=== PATIENT | male | born 1960 | race Caucasian/White ===

== ENCOUNTER 2017-06-21 15:00 | Emergency (ER) | payer BC ==
--- NOTE | 2017-06-21 15:38 | Emergency Department Record ---
History of Present Illness - General Chief Complaint: Laceration(s) Stated Complaint: THUMB INJURY Time Seen by Provider: 06/21/17 15:25 Source: Patient, Family Mode of Arrival: Ambulatory Limitations: No limitations - History of Present Illness Initial Commments: 56 yo male presents with a left thumb injury. He was cutting wood with a chop saw and injured his thumb. 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 Onset/Timin -: Minutes(s) Extremity Location: Left: Hand Place: Home Context: Accidental, Power tool use Associated Symptoms: None Treatments Prior to Arrival: Bandage - Antoinette Coma Scale Eye Response: (4) Open spontaneously Motor Response: (6) Obeys commands Verbal Response: (5) Oriented Antoinette Total: 15 - Related Data Hx Tetanus Toxoid Vaccination: Yes Year of Tetanus Vaccination: 2014 Patient Tetanus UTD (within 5 yrs): Yes (2014) Previous Rx's Medication Instructions Recorded Cephalexin [Keflex] 500 mg PO TID #21 cap 06/21/17 Hydrocodone/Acetaminophen [[place] 1 tab PO Q6H PRN #20 tab 06/21/17 7.5mg/325mg] Allergies Allergy/AdvReac Type Severity Reaction Status Date / Time No Known Drug Allergies Allergy Verified 10/18/16 13:41 Travel Screening - Travel/Exposure Within Last 30 Days Have you traveled within the last 30 days?: No Review of Systems Constitutional: Denies: Chills, Fever, Malaise, Weakness Eyes: Denies: Eye discharge ENT: Denies: Congestion Respiratory: Denies: Cough, Dyspnea Cardiovascular: Denies: Chest pain, Syncope Endocrine: Denies: Fatigue Gastrointestinal: Denies: Abdominal pain, Diarrhea, Nausea, Vomiting Genitourinary: Denies: Dysuria Musculoskeletal: Reports: As per HPI, Arthralgia Skin: Denies: Bruising, Change in color, Rash Neurological: Denies: Confusion, Headache Psychiatric: Denies: Anxiety Hematological/Lymphatic: Denies: Blood Clots, Easy bleeding, Easy bruising, Swollen glands Past Medical History - SOCIAL HISTORY Smoking Status: Current every day smoker Alcohol Use: None Drug Use: None - RESPIRATORY Hx Respiratory Disorders: No - CARDIOVASCULAR Hx Cardio Disorders: No - NEURO Hx Neuro Disorders: No - GI Hx GI Disorders: No - Hx Genitourinary Disorders: No - ENDOCRINE Hx Endocrine Disorders: No - MUSCULOSKELETAL Hx Musculoskeletal Disorders: No - PSYCH Hx Psych Problems: No - HEMATOLOGY/ONCOLOGY Hx Hematology/Oncology Disorders: No Family Medical History Any Significant Family History?: No Physical Exam - General General Appearance: Alert, Oriented x3, Cooperative, No acute distress Limitations: No limitations - Head Head exam: Atraumatic, Normal inspection - Eye Eye exam: Normal appearance - ENT ENT exam: Normal exam Ear exam: Normal external inspection Nasal Exam: Normal inspection Mouth exam: Normal external inspection - Neck Neck exam: Normal inspection - Respiratory Respiratory exam: negative: Accessory muscle use - Cardiovascular Cardiovascular Exam: Regular rate, Normal rhythm, Normal heart sounds Peripheral Pulses: 2+: Dorsalis Pedis (L) - Rectal Rectal exam: Deferred - exam: Deferred - Extremities Extremities exam: negative: Normal inspection Image of Finger Tip: 1 - laceration with visible bone, mobile distal tip of the thumb - Neurological Neurological exam: Alert, Normal gait, Oriented X3, Reflexes normal - Psychiatric Psychiatric exam: Normal affect, Normal mood - Skin Skin exam: Other (thumb laceration). negative: Cyanosis, Diaphoretic Course Vital Signs 06/21/17 15:16 Temperature 98.8 F Pulse Rate 90 Respiratory 20 Rate Blood Pressure 148/89 Pulse Ox 95 - Reevaluation(s) Reevaluation #1: Betadine Prep Sensorcaine 4ml digital block. 06/21/17 15:37 1 liter of pressure irrigation was used to thoroughly clean the wound Bone was visible No FB visible Non adherent bandage with antibiotic ointment dress placed The XR demonstrated a distal comminuted fracture of the bone I discussed the extensive wound likely will require a hand surgery followup/ consult with possible altered function and anatomy as a result of the injury. Reevaluation #2: I SW Dr Deal He will see the patient tomorrow in the office He requested 2 sutures to stabilize the injury and bulky dressing The patient was given IV antibiotics and supplied with antibiotics for home and pain medication 06/21/17 16:46 Disposition Disposition: Discharge Clinical Impression: Thumb laceration Qualifiers: Encounter type: initial encounter Damage to nail status: unspecified Foreign body presence: unspecified Laterality: unspecified laterality Qualified Code(s) : S61.019A - Laceration without foreign body of unspecified thumb without damage to nail, initial encounter Disposition: Home, Self-Care Condition: (1) Good Instructions: Laceration (ED) Additional Instructions: Call Dr Deal in the morning at 8am to be seen tomorrow Take a Keflex at bedtime and in the morning Prescriptions: Cephalexin [Keflex] 500 mg PO TID #21 cap Hydrocodone/Acetaminophen [[place] 7.5mg/325mg] 1 tab PO Q6H PRN #20 tab PRN Reason: Pain - General Referrals: ARDEN DEAL [MEDICAL DOCTOR] - Forms: Patient Portal Access Time of Disposition: 17:02 Quality - Quality Measures Quality Measures: N/A - Blood Pressure Screening View Details: Yes Blood Pressure Classification: Pre-Hypertensive BP Reading Systolic Measurement: 115 Diastolic Measurement: 81 Screening for High Blood Pressure: < Normal BP, F/U Not Required > [G8783] Normal BP Follow-up Interventions: No follow-up required
[2017-06-21] MEDS: CEFAZOLIN 2 Gram 2 GM/50 ML BAG IVPB ONE (16:00)
[2017-06-21] MEDS: CEPHALEXIN 500 MG CAPSULE PO STA ×2 (17:33→17:36)
[2017-06-21] MEDS: HYDROCODONE/APAP 7.5/325MG TABLET PO ONE (17:33)
--- NOTE | 2017-06-23 11:26 | RADIOLOGY REPORT ---
EXAM: LEFT THUMB HISTORY: CHOP SAW LACERATION INJURY TO THUMB WITH NEAR AMPUTATION. TECHNIQUE: Three views of the left thumb were obtained. Comparison: None. Encounter: Initial. FINDINGS: There is marked deformity of the distal phalanx of the thumb with a comminuted fracture with a relatively large gap between the major proximal and distal fracture fragments by approximately 7.7 mm. Associated prominent soft tissue deformity as well consistent with the history of near amputation. This probably represents an open fracture given the mechanism of injury and some air about the fracture site as well. 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 No fracture of the proximal phalanx evident. IMPRESSION: COMMINUTED DISPLACED FRACTURE OF THE DISTAL PHALANX OF THE LEFT THUMB WITH MARKED OVERLYING SOFT TISSUE DEFORMITY WITH SOME AIR IN THE SOFT TISSUES CONSISTENT WITH NEAR AMPUTATION WITH AN OPEN FRACTURE DESCRIBED ABOVE. JOB NUMBER: [id number] MTDD
== END 2017-06-21 17:30 | disposition home or self-care (01) ==
LOC: ER 15:00
DX: S62.522B Displaced fracture of distal phalanx of left thumb, initial encounter for open fracture (principal); W31.2XXA Contact with powered woodworking and forming machines, initial encounter; Y92.009 Unspecified place in unspecified non-institutional (private) residence as the place of occurrence of the external cause
CPT/HCPCS: 64450 ×2; 99284 ×2; 96374; 73140; J0690

== ENCOUNTER 2017-08-11 17:23 | Emergency (ER) | payer BC ==
--- NOTE | 2017-08-11 17:30 | Emergency Department Record ---
History of Present Illness - General Stated complaint: LT HAND THUMB PAIN Time Seen by Provider: 08/11/17 17:25 Source: Patient, Family Mode of Arrival: Ambulatory Limitations: No limitations - History of Present Illness Initial comments: 57 yo male presents with pain in his thumb one day after amputation in the operating room. He originally injured the thumb in May. He had two surgeries to try to preserve the thumb but it was not successful. He finally had an amputation yesterday. No fever. He was sent home on ibuprofen and his pain is not well controlled. He is right handed. This is the left thumb. MD Complaint: Extremity pain, Joint pain -: Days(s) (1) Location: Other (Thumb) -: Yes Arthralgia Quality: Aching Consistency: Constant Improves with: Nothing Worsens with: Palpation Associated Symptoms: Denies other symptoms - Related Data Previous Rx's Medication Instructions Recorded Hydrocodone/Acetaminophen [[place] 1 each PO Q6H #20 tablet 08/11/17 7.5-325 Tablet] Allergies Allergy/AdvReac Type Severity Reaction Status Date / Time No Known Drug Allergies Allergy Verified 10/18/16 13:41 Review of Systems Constitutional: Denies: Chills, Fever, Malaise, Weakness Eyes: Denies: Eye discharge ENT: Denies: Congestion, Throat pain Respiratory: Denies: Cough Cardiovascular: Denies: Chest pain, Syncope Endocrine: Denies: Fatigue Gastrointestinal: Denies: Abdominal pain, Diarrhea, Nausea, Vomiting Genitourinary: Denies: Dysuria, Frequency, Hematuria Musculoskeletal: Reports: As per HPI, Arthralgia Skin: Denies: Bruising, Change in color, Rash Neurological: Denies: Numbness, Weakness Psychiatric: Denies: Anxiety Hematological/Lymphatic: Denies: Blood Clots, Easy bleeding, Easy bruising Past Medical History - SOCIAL HISTORY Smoking Status: Current every day smoker Drug Use: None - RESPIRATORY Hx Respiratory Disorders: No - CARDIOVASCULAR Hx Cardio Disorders: No - NEURO Hx Neuro Disorders: No - GI Hx GI Disorders: No - Hx Genitourinary Disorders: No - ENDOCRINE Hx Endocrine Disorders: No - MUSCULOSKELETAL Hx Musculoskeletal Disorders: No - PSYCH Hx Psych Problems: No - HEMATOLOGY/ONCOLOGY Hx Hematology/Oncology Disorders: No Physical Exam - General General Appearance: Alert, Oriented x3, Cooperative - Head Head exam: Atraumatic. negative: Normal inspection - Eye Eye exam: Normal appearance - ENT ENT exam: Normal exam Ear exam: Normal external inspection Nasal Exam: Normal inspection Mouth exam: Normal external inspection - Neck Neck exam: Normal inspection - Cardiovascular Peripheral Pulses: 2+: Radial (L) - Extremities Extremities exam: Normal inspection, Other (In a dressing, no bleeding, no erythema, no hand swelling or warmth) - Neurological Neurological exam: Alert, Oriented X3 - Psychiatric Psychiatric exam: Normal affect, Normal mood - Skin Skin exam: Dry, Intact, Normal color, Warm Course - Reevaluation(s) Reevaluation #1: The patient is well appearing His post op pain is not controlled by the ibuprofen He will be provided with a limited RX for pain medication at home 08/11/17 17:40 Disposition Disposition: Discharge Clinical Impression: Post-op pain Disposition: Home, Self-Care Condition: (1) Good Instructions: Finger Amputation (ED) Additional Instructions: Follow up as scheduled Return if warmth, red, pus, swelling, uncontrolled pain. Prescriptions: Hydrocodone/Acetaminophen [[place] 7.5-325 Tablet] 1 each PO Q6H #20 tablet Forms: Patient Portal Access Time of Disposition: 17:42 Quality - Quality Measures Quality Measures: N/A - Blood Pressure Screening Does Patient Have Any of the Following: No Blood Pressure Classification: Pre-Hypertensive BP Reading Systolic Measurement: 137 Diastolic Measurement: 75 Screening for High Blood Pressure: < Pre-Hypertensive BP, F/U Documented > [ G8950] Pre-Hypertensive Follow-up Interventions: Referral to alternative/primary care provider.
[2017-08-11] MEDS: HYDROCODONE/APAP 7.5/325MG TABLET PO ONE (17:40)
== END 2017-08-11 17:55 | disposition home or self-care (01) ==
LOC: ER 17:23
DX: G89.18 Other acute postprocedural pain (principal); G54.6 Phantom limb syndrome with pain; M79.645 Pain in left finger(s)
CPT/HCPCS: 99282

== ENCOUNTER 2018-06-24 11:03 | Emergency (ER) | payer BC ==
[2018-06-24] MEDS ORDERED: DIPHENHYDRAMINE HCL 25 MG CAPSULE PO ONE (11:33)
--- NOTE | 2018-06-24 11:39 | Emergency Department Record ---
History of Present Illness - General Chief complaint: ENT Stated complaint: PLUGGED EARS Time Seen by Provider: 06/24/18 11:30 Source: Patient Mode of Arrival: Ambulatory Limitations: No limitations - History of Present Illness Initial comments: pt states his r ear is plugged. he states he tried to get it cleaned out but was unable. complaint: Other Onset/Timin -: Days(s) Location: R ear, L ear Consistency: Constant Associated Symptoms: Other - Related Data Home Medications Medication Instructions Recorded Confirmed Last Taken Gabapentin [Neurontin] 600 mg PO DAILY 06/24/18 06/24/18 06/24/18 Allergies Allergy/AdvReac Type Severity Reaction Status Date / Time No Known Drug Allergies Allergy Verified 06/24/18 11:09 Travel Screening - Travel/Exposure Within Last 30 Days Have you traveled within the last 30 days?: No - Travel/Exposure Within Last Year Have you traveled outside the [place] in the last year?: No - Additonal Travel Details Have you been exposed to anyone with a communicable illness?: No - Travel Symptoms Symptom Screening: None Review of Systems Reviewed: No additional complaints except as noted below Constitutional: Reports: As per HPI. Denies: Chills, Fever, Malaise, Night sweats, Weakness, Weight change Eyes: Reports: As per HPI. Denies: Eye discharge, Eye pain, Photophobia, Vision change ENT: Reports: As per HPI. Denies: Congestion, Dental pain, Ear pain, Epistaxis , Hearing loss, Throat pain Respiratory: Reports: As per HPI. Denies: Cough, Dyspnea, Hemoptysis, Stridor, Wheezes Cardiovascular: Reports: As per HPI. Denies: Arrhythmia, Chest pain, Dyspnea on exertion, Edema, Murmurs, Orthopnea, Palpitations, Paroxysmal nocturnal dyspnea, Rheumatic Fever, Syncope Endocrine: Reports: As per HPI. Denies: Fatigue, Heat or cold intolerance, Polydipsia, Polyuria Gastrointestinal: Reports: As per HPI. Denies: Abdominal pain, Constipation, Diarrhea, Hematemesis, Hematochezia, Melena, Nausea, Vomiting Genitourinary: Reports: As per HPI. Denies: Dysuria, Frequency, Hematuria, Incontinence, Retention, Testicular pain, Testicular mass, Urgency Musculoskeletal: Reports: As per HPI. Denies: Arthralgia, Back pain, Gout, Joint swelling, Myalgia, Neck pain Skin: Reports: As per HPI. Denies: Bruising, Change in color, Change in hair/ nails, Lesions, Pruritus, Rash Neurological: Reports: As per HPI. Denies: Abnormal gait, Confusion, Headache, Numbness, Paresthesias, Seizure, Tingling, Tremors, Vertigo, Weakness Psychiatric: Reports: As per HPI. Denies: Anxiety, Auditory hallucinations, Depression, Homicidal thoughts, Suicidal thoughts, Visual hallucinations Hematological/Lymphatic: Reports: As per HPI. Denies: Anemia, Blood Clots, Easy bleeding, Easy bruising, Swollen glands Past Medical History - SOCIAL HISTORY Smoking Status: Former smoker Alcohol Use: None Drug Use: Rare Drug Use Detail:: Marijuana - RESPIRATORY Hx Respiratory Disorders: No - CARDIOVASCULAR Hx Cardio Disorders: No - NEURO Hx Neuro Disorders: No - GI Hx GI Disorders: No - Hx Genitourinary Disorders: No - ENDOCRINE Hx Endocrine Disorders: No - MUSCULOSKELETAL Hx Musculoskeletal Disorders: No - PSYCH Hx Psych Problems: No - HEMATOLOGY/ONCOLOGY Hx Hematology/Oncology Disorders: No Family Medical History Any Significant Family History?: No Physical Exam - General General Appearance: Alert, Oriented x3, Cooperative, Mild distress - Head Head exam: Normal inspection - Eye Eye exam: Normal appearance, PERRL, EOMI Pupils: Normal accommodation - ENT ENT exam: Normal exam, Mucous membranes moist, Normal external ear exam, Normal orophraynx, TM's normal bilaterally Ear exam: Normal external inspection. negative: External canal tenderness Nasal Exam: Normal inspection. negative: Discharge, Sinus tenderness Mouth exam: Normal external inspection, Tongue normal Teeth exam: Normal inspection. negative: Dental caries Throat exam: Normal inspection. negative: Tonsillar erythema, Tonsillar exudate - Neck Neck exam: Normal inspection, Full ROM. negative: Tenderness - Respiratory Respiratory exam: Normal lung sounds bilaterally. negative: Respiratory distress - Cardiovascular Cardiovascular Exam: Regular rate, Normal rhythm, Normal heart sounds - GI/Abdominal GI/Abdominal exam: Soft, Normal bowel sounds. negative: Tenderness - Rectal Rectal exam: Deferred - exam: Deferred - Extremities Extremities exam: Normal inspection, Full ROM, Normal capillary refill. negative: Tenderness - Back Back exam: Reports: Normal inspection, Full ROM. Denies: Muscle spasm, Rash noted, Tenderness - Neurological Neurological exam: Alert, CN II-XII intact, Normal gait, Oriented X3 - Psychiatric Psychiatric exam: Normal affect, Normal mood - Skin Skin exam: Dry, Intact, Normal color, Warm Course Vital Signs 06/24/18 11:11 Temperature 97.6 F Pulse Rate 59 L Respiratory 18 Rate Blood Pressure 115/80 Pulse Ox 98 - Reevaluation(s) Reevaluation #1: 06/24/18 11:36 pts ears were not occluded Disposition Disposition: Discharge Clinical Impression: Fluid collection of middle ear Disposition: Home, Self-Care Condition: (1) Good Instructions: Analgesic/Decongestant (By mouth) Additional Instructions: follow up with family doctor. return sooner if worse. benadryl every 6 hours as needed Quality - Quality Measures Quality Measures: N/A - Blood Pressure Screening Does Patient Have Any of the Following: No Blood Pressure Classification: Pre-Hypertensive BP Reading Systolic Measurement: 115 Diastolic Measurement: 80 Screening for High Blood Pressure: < Pre-Hypertensive BP, F/U Documented > [ G8950] Pre-Hypertensive Follow-up Interventions: Follow-up with rescreen every year.
== END 2018-06-24 11:50 | disposition home or self-care (01) ==
LOC: ER 11:03
DX: H74.8X3 Other specified disorders of middle ear and mastoid, bilateral (principal); Z87.891 Personal history of nicotine dependence
CPT/HCPCS: 99282